=== PATIENT | male | born 1945 | race Caucasian/White ===

== ENCOUNTER 2017-04-29 13:51 | Emergency (ER) | payer OTHER ==
[2017-04-29 14:16] VITALS: BP 136/79; PULSE 95; RESP 18; TEMP 98.4; O2SAT 97
[2017-04-29 14:52] LABS: HEMATOCRIT 46 % (39-53); MEAN CORPUSCULAR HGB CONC 36.3 gm/dl (32.0-36.0); MEAN CORPUSCULAR VOLUME 91 fL (80-100)
[2017-04-29 15:06] LABS: EOSINOPHILS % (MANUAL) 1 % (0-9); LYMPHOCYTES % (MANUAL) 12 % (10-50)
[2017-04-29 15:07] LABS: BASOPHILS % (MANUAL) 0 % (0-3); NORMAL RBCS PRESENT
[2017-04-29 15:09] LABS: CALCIUM 9.4 mg/dl (8.5-10.1); POTASSIUM 3.7 mMol/L (3.5-5.1); THYROID STIMULATING HORMONE 1.251 uIU/ml (0.358-3.740)
[2017-04-29 15:25] LABS: APPEARANCE,URINE Clear; BILIRUBIN,URINE NEGATIVE (NEGATIVE); COLOR,URINE Dark yellow; GLUCOSE, URINE (UA) NEGATIVE (NEGATIVE); KETONES,URINE 2+ (NEGATIVE); LEUKOCYTE ESTERASE ,URINE NEGATIVE (NEGATIVE); NITRATE,URINE NEGATIVE (NEGATIVE); OCCULT BLOOD,URINE TRACE INTACT (NEG-TRACE); PH,URINE 6.5; UROBILINOGEN,URINE 0.2 (0.2-1.0 EU)
[2017-04-29 15:34] LABS: METHADONE NEGATIVE (NEGATIVE); RBC,URINE 0-2 (0-3AV/HPF); TRICYCLIC ANTIDEPRESSANTS NEGATIVE (NEGATIVE); WBC,URINE 0-2 (0-5AV/HPF)
[2017-04-29 15:35] LABS: AMPHETAMINES NEGATIVE (NEGATIVE); OPIATES(OP13) NEGATIVE (NEGATIVE); OXYCODONE(OXY) NEGATIVE (NEGATIVE); PROPOXYPHENE(PPX) NEGATIVE (NEGATIVE)
== END 2017-04-29 21:30 | disposition short-term general hospital (02) | DRG 880 ==
LOC: ED 13:51
DX: R45.851 Suicidal ideations (principal); F32.9 Major depressive disorder, single episode, unspecified
CPT/HCPCS: 36415; 80053; 80305; 80307; 81001; 84443; 85007; 85027; 99283

== ENCOUNTER 2018-04-20 13:43 | Emergency (ER) | payer OTHER ==
[2018-04-20 14:48] VITALS: RESP 18
[2018-04-20 15:22] LABS: BASOPHILS % (AUTO) 1 % (0-3); EOSINOPHILS % (AUTO) 1 % (0-9); HEMATOCRIT 41 % (39-53); HEMOGLOBIN 13.8 gm/dl (13.5-17.7); LYMPHOCYTES % (AUTO) 17.9 % (10-50); MEAN CORPUSCULAR HEMOGLOBIN 29.9 pg (27.0-32.0); MEAN CORPUSCULAR VOLUME 88 fL (80-100); MONOCYTES % (AUTO) 9.1 % (0-12); NEUTROPHILS % (AUTO) 71.2 % (37-80)
[2018-04-20 15:37] LABS: ALBUMIN 3.6 gm/dl (3.4-5.0); ALKALINE PHOSPHATASE 65 IU/L (46-116); ALT 16 IU/L (14-63); AST 11 IU/L (15-37); BILIRUBIN,TOTAL 0.5 mg/dl (0.2-1.0); BLOOD UREA NITROGEN 8 mg/dl (7-18); CALCIUM 8.9 mg/dl (8.5-10.1); CARBON DIOXIDE 26.3 mEq/L (21-32); CHLORIDE 92 mMol/L (98-107); CREATININE 0.75 mg/dl (0.80-1.30); GLUCOSE 100 mg/dl (74-106); POTASSIUM 4.2 mMol/L (3.5-5.1); SALICYLATE < 2.8 mg/dl (2.8-30.0); SODIUM 125 mMol/L (136-145); THYROID STIMULATING HORMONE 1.243 uIU/ml (0.358-3.740); TOTAL PROTEIN 6.7 gm/dl (6.4-8.2)
[2018-04-20 15:38] LABS: ACETAMINOPHEN < 2 ug/ml (10-30); ALCOHOL < 0.003 gm/dl (0.000-0.08)
[2018-04-20 16:16] LABS: APPEARANCE,URINE Clear; BILIRUBIN,URINE NEGATIVE (NEGATIVE); COLOR,URINE Yellow; GLUCOSE, URINE (UA) NEGATIVE (NEGATIVE); KETONES,URINE NEGATIVE (NEGATIVE); LEUKOCYTE ESTERASE ,URINE NEGATIVE (NEGATIVE); NITRATE,URINE NEGATIVE (NEGATIVE); OCCULT BLOOD,URINE NEGATIVE (NEG-TRACE); UROBILINOGEN,URINE 0.2 (0.2-1.0 EU)
[2018-04-20 16:29] LABS: BACTERIA TRACE (< 1+); CRYSTALS NEGATIVE (0-3 AVE/HPF); EPITHELIAL CELLS NEGATIVE (SQUAMOUS); RBC,URINE NEGATIVE (0-3AV/HPF); WBC,URINE NEGATIVE (0-5AV/HPF)
[2018-04-20 16:30] LABS: AMPHETAMINES NEGATIVE (NEGATIVE); BARBITUATES NEGATIVE (NEGATIVE); BENZODIAZEPINES NEGATIVE (NEGATIVE); CANNABINOL(THC) NEGATIVE (NEGATIVE); COCAINE(COC) NEGATIVE (NEGATIVE); METHADONE NEGATIVE (NEGATIVE); METHAMPHETAMINES NEGATIVE (NEGATIVE); OPIATES(OPI) NEGATIVE (NEGATIVE); OXYCODONE(OXY) NEGATIVE (NEGATIVE); PROPOXYPHENE(PPX) NEGATIVE (NEGATIVE); TRICYCLIC ANTIDEPRESSANTS NEGATIVE (NEGATIVE)
[2018-04-20 18:04] VITALS: BP 111/56; PULSE 61; TEMP 97.8; O2SAT 96
== END 2018-04-21 01:40 | disposition short-term general hospital (02) | DRG 880 ==
LOC: ED 13:43
DX: R45.851 Suicidal ideations (principal); E87.1 Hypo-osmolality and hyponatremia; Z79.899 Other long term (current) drug therapy
CPT/HCPCS: 36415; 80053; 80305; 80307; 81001; 84295; 84443; 85025; 99283; 99284

== ENCOUNTER 2018-06-24 10:46 | Emergency (ER) | payer OTHER ==
[2018-06-24 12:30] VITALS: O2SAT 98
[2018-06-24 12:34] LABS: BASOPHILS % (AUTO) 1 % (0-3); EOSINOPHILS % (AUTO) 1 % (0-9); HEMATOCRIT 41 % (39-53); HEMOGLOBIN 14.1 gm/dl (13.5-17.7); LYMPHOCYTES % (AUTO) 13.9 % (10-50); MEAN CORPUSCULAR HEMOGLOBIN 29.6 pg (27.0-32.0); MEAN CORPUSCULAR VOLUME 87 fL (80-100); MONOCYTES % (AUTO) 6.2 % (0-12); NEUTROPHILS % (AUTO) 78.4 % (37-80)
[2018-06-24 12:42] LABS: ALBUMIN 3.7 gm/dl (3.4-5.0); ALCOHOL < 0.003 gm/dl (0.000-0.08); ALKALINE PHOSPHATASE 74 IU/L (46-116); ALT 20 IU/L (14-63); AST 13 IU/L (15-37); BILIRUBIN,TOTAL 0.4 mg/dl (0.2-1.0); BLOOD UREA NITROGEN 16 mg/dl (7-18); CALCIUM 9.4 mg/dl (8.5-10.1); CHLORIDE 92 mMol/L (98-107); CREATININE 0.86 mg/dl (0.80-1.30); GLUCOSE 153 mg/dl (74-106); POTASSIUM 4.5 mMol/L (3.5-5.1); SODIUM 130 mMol/L (136-145); THYROID STIMULATING HORMONE 1.426 uIU/ml (0.358-3.740); TOTAL PROTEIN 7.1 gm/dl (6.4-8.2)
[2018-06-24 12:48] LABS: APPEARANCE,URINE Slightly Cloudy; BILIRUBIN,URINE NEGATIVE (NEGATIVE); COLOR,URINE Yellow; GLUCOSE, URINE (UA) NEGATIVE (NEGATIVE); KETONES,URINE NEGATIVE (NEGATIVE); LEUKOCYTE ESTERASE ,URINE NEGATIVE (NEGATIVE); NITRATE,URINE NEGATIVE (NEGATIVE); OCCULT BLOOD,URINE NEGATIVE (NEG-TRACE); PH,URINE 7.5; UROBILINOGEN,URINE 0.2 (0.2-1.0 EU)
[2018-06-24 13:10] LABS: AMPHETAMINES NEGATIVE (NEGATIVE); BACTERIA 2+ (< 1+); BARBITUATES NEGATIVE (NEGATIVE); BENZODIAZEPINES POSITIVE (NEGATIVE); CANNABINOL(THC) NEGATIVE (NEGATIVE); COCAINE(COC) NEGATIVE (NEGATIVE); CRYSTALS 1+ (0-3 AVE/HPF); EPITHELIAL CELLS 0-1 (SQUAMOUS); METHADONE NEGATIVE (NEGATIVE); METHAMPHETAMINES NEGATIVE (NEGATIVE); OPIATES(OPI) NEGATIVE (NEGATIVE); OXYCODONE(OXY) NEGATIVE (NEGATIVE); PROPOXYPHENE(PPX) NEGATIVE (NEGATIVE); RBC,URINE 0-1 (0-3AV/HPF); TRICYCLIC ANTIDEPRESSANTS POSITIVE (NEGATIVE); WBC,URINE 0-2 (0-5AV/HPF)
[2018-06-24 14:18] VITALS: BP 113/70; PULSE 82; RESP 20; TEMP 97.2
== END 2018-06-24 15:30 | DRG 880 ==
LOC: ED 10:46
DX: R45.851 Suicidal ideations (principal)
CPT/HCPCS: 36415; 80053; 80305; 80307; 81001; 84443; 85025; 99283